=== PATIENT | male | born 2000 | race Caucasian/White ===

== ENCOUNTER 2024-02-19 16:07 | Emergency (ER) | payer OTHER ==
[~2024-02-19] VITALS: Ht 188 cm; Wt 75.0 kg
[2024-02-19 16:51] LABS: HEMATOCRIT 43.1 % (42.0-52.0); HEMOGLOBIN 14.7 g/dl (13.5-17.5); MEAN CORPUSCULAR HEMOGLOBIN 29.1 pg (27.0-33.0); MEAN CORPUSCULAR HGB CONC 34.1 g/dl (32.0-36.5); MEAN CORPUSCULAR VOLUME 85.2 fl (80.0-96.0); PLATELET COUNT, AUTOMATED 287 10^3/uL (150-450); RED BLOOD COUNT 5.06 10^6/uL (4.30-6.10); WHITE BLOOD COUNT 10.1 10^3/uL (4.0-10.0)
[2024-02-19 17:10] LABS: AMPHETAMINES LEVEL URINE NEGATIVE (NEGATIVE); BARBITURATES URINE NEGATIVE (NEGATIVE); BENZODIAZEPINES URINE NEGATIVE (NEGATIVE); CANNABINOIDS URINE NEGATIVE (NEGATIVE); COCAINE METABOLITE URINE NEGATIVE (NEGATIVE); METHADONE URINE NEGATIVE (NEGATIVE); OPIATES URINE NEGATIVE (NEGATIVE); PHENCYCLIDINE URINE NEGATIVE (NEGATIVE)
[2024-02-19 17:15] LABS: ALBUMIN 4.4 G/DL (3.2-5.2); ALKALINE PHOSPHATASE 153 U/L (46-116); ALT/SGPT 17 U/L (7.0-40); AST/SGOT 12 U/L (<34); BILIRUBIN,DIRECT 0.1 MG/DL (<0.4); BILIRUBIN,TOTAL 0.2 MG/DL (0.3-1.2); BLOOD UREA NITROGEN 16 MG/DL (9-23); CALCIUM LEVEL 8.9 MG/DL (8.5-10.1); CARBON DIOXIDE LEVEL 26 MMOL/L (20-31); CHLORIDE LEVEL 106 MMOL/L (98-107); CREATININE FOR GFR 0.82 MG/DL (0.70-1.30); GLOMERULAR FILTRATION RATE > 60.0 (>60); GLUCOSE, FASTING 77 MG/DL (60-100); POTASSIUM SERUM 3.9 MMOL/L (3.5-5.1); SALICYLATE LEVEL < 3.0 MG/DL (<30); SODIUM LEVEL 141 MMOL/L (136-145); TOTAL PROTEIN 7.5 G/DL (5.7-8.2)
[2024-02-19 22:47] VITALS: BP 116/59; TEMP 97.8; O2SAT 99
== END 2024-02-19 22:51 | disposition home or self-care (01) ==
LOC: M ED 16:07
DX: F10.129 Alcohol abuse with intoxication, unspecified (principal); F43.0 Acute stress reaction; S60.221A Contusion of right hand, initial encounter; W22.09XA Striking against other stationary object, initial encounter; Z91.013 Allergy to seafood; Y92.9 Unspecified place or not applicable; Y93.9 Activity, unspecified; Y99.1 Military activity

== ENCOUNTER 2024-06-03 11:37 | Emergency (ER) | payer OTHER ==
[~2024-06-03] VITALS: Ht 185.4 cm; Wt 79.9 kg
[2024-06-03] MEDS ORDERED: ZOLO100T PO (11:43)
[2024-06-03 12:35] LABS: BASO # 0.1 10^3/uL (0.0-0.2); BASO % 0.9 % (0.0-1.0); EOS # 0.2 10^3/uL (0.0-0.5); EOS % 3.4 % (0.0-3.0); HEMATOCRIT 45.3 % (42.0-52.0); HEMOGLOBIN 15.1 g/dl (13.5-17.5); LYMPH # 1.4 10^3/uL (1.5-5.0); LYMPH % 23.6 % (24.0-44.0); MEAN CORPUSCULAR HEMOGLOBIN 28.6 pg (27.0-33.0); MEAN CORPUSCULAR HGB CONC 33.3 g/dl (32.0-36.5); MEAN CORPUSCULAR VOLUME 85.8 fl (80.0-96.0); MONO # 0.4 10^3/uL (0.0-0.8); MONO % 6.3 % (2.0-8.0); NEUTROPHILS # 3.9 10^3/uL (1.5-8.5); NEUTROPHILS % 65.6 % (36.0-66.0); PLATELET COUNT, AUTOMATED 225 10^3/uL (150-450); RED BLOOD COUNT 5.28 10^6/uL (4.30-6.10); WHITE BLOOD COUNT 5.9 10^3/uL (4.0-10.0)
[2024-06-03 13:05] LABS: ALBUMIN 4.4 G/DL (3.2-5.2); BILIRUBIN,DIRECT 0.1 MG/DL (<0.4); BILIRUBIN,TOTAL 0.4 MG/DL (0.3-1.2); TOTAL PROTEIN 7.4 G/DL (5.7-8.2)
[2024-06-03] MEDS: NS 1,000 ML IV ONE (13:15)
[2024-06-03] MEDS ORDERED: ONDA-282 PO (14:17)
[2024-06-03 14:25] VITALS: BP 102/57; TEMP 97.4; O2SAT 100
== END 2024-06-03 14:40 | disposition home or self-care (01) ==
LOC: M ED 11:37
DX: B34.9 Viral infection, unspecified (principal); R11.2 Nausea with vomiting, unspecified; R19.7 Diarrhea, unspecified; Z11.52 Encounter for screening for COVID-19; F32.A Depression, unspecified

== ENCOUNTER 2024-09-09 11:54 | Emergency (ER) | payer OTHER ==
[~2024-09-09] VITALS: Ht 182.9 cm; Wt 79.4 kg
[~2024-09-09 11:54] MED LIST: ONDA-282 PO; ZOLO100T PO
[2024-09-09 12:01] VITALS: BP 115/65; TEMP 97.8; O2SAT 97
[2024-09-09 13:39] LABS: BASO # 0.1 10^3/uL (0.0-0.2); BASO % 0.6 % (0.0-1.0); EOS # 0.2 10^3/uL (0.0-0.5); EOS % 2.4 % (0.0-3.0); HEMATOCRIT 46.6 % (42.0-52.0); HEMOGLOBIN 15.8 g/dl (13.5-17.5); LYMPH # 1.6 10^3/uL (1.5-5.0); LYMPH % 17.4 % (24.0-44.0); MEAN CORPUSCULAR HEMOGLOBIN 29.2 pg (27.0-33.0); MEAN CORPUSCULAR HGB CONC 33.9 g/dl (32.0-36.5); MONO # 0.5 10^3/uL (0.0-0.8); NEUTROPHILS # 6.9 10^3/uL (1.5-8.5); NEUTROPHILS % 74.2 % (36.0-66.0); PLATELET COUNT, AUTOMATED 272 10^3/uL (150-450); RED BLOOD COUNT 5.42 10^6/uL (4.30-6.10); WHITE BLOOD COUNT 9.3 10^3/uL (4.0-10.0)
[2024-09-09 14:02] LABS: LIPASE 37 U/L (12-53)
[2024-09-09 14:04] LABS: ALBUMIN 4.3 G/DL (3.2-5.2); ALKALINE PHOSPHATASE 147 U/L (40-129); ALT/SGPT 21 U/L (7.0-40); AST/SGOT 11 U/L (<34); BILIRUBIN,DIRECT 0.1 MG/DL (<0.4); BILIRUBIN,TOTAL 0.3 MG/DL (0.3-1.2); BLOOD UREA NITROGEN 18 MG/DL (9-23); CALCIUM LEVEL 9.6 MG/DL (8.5-10.1); CARBON DIOXIDE LEVEL 28 MMOL/L (20-31); CHLORIDE LEVEL 106 MMOL/L (98-107); CREATININE FOR GFR 0.95 MG/DL (0.70-1.30); GLOMERULAR FILTRATION RATE > 60.0 (>60); GLUCOSE, FASTING 85 MG/DL (60-100); POTASSIUM SERUM 4.5 MMOL/L (3.5-5.1); SODIUM LEVEL 140 MMOL/L (136-145); TOTAL PROTEIN 7.9 G/DL (5.7-8.2)
[2024-09-09] MEDS ORDERED: GASTROGRAFIN SOLUTION 30ML PO SCH (15:30)
== END 2024-09-09 15:00 | disposition left against medical advice (07) ==
LOC: M ED 11:54
DX: R10.31 Right lower quadrant pain (principal); Z53.9 Procedure and treatment not carried out, unspecified reason; F32.A Depression, unspecified; F17.290 Nicotine dependence, other tobacco product, uncomplicated; Z79.899 Other long term (current) drug therapy; Z91.013 Allergy to seafood

== ENCOUNTER 2024-09-09 17:41 | Emergency (ER) | payer OTHER ==
[~2024-09-09] VITALS: Ht 182.9 cm; Wt 80.0 kg
[2024-09-09 17:45] VITALS: BP 114/60; TEMP 97.4; O2SAT 98
== END 2024-09-09 19:00 | disposition home or self-care (01) ==
LOC: M ED 17:41
DX: F43.0 Acute stress reaction (principal); F32.A Depression, unspecified; Z91.013 Allergy to seafood; Z79.83 Long term (current) use of bisphosphonates; Z79.899 Other long term (current) drug therapy

== ENCOUNTER 2025-01-16 23:15 | Emergency (ER) | payer OTHER ==
[~2025-01-16] VITALS: Ht 182.9 cm; Wt 75.0 kg
[2025-01-16 23:43] LABS: HEMATOCRIT 46.5 % (42.0-52.0); HEMOGLOBIN 15.9 g/dl (13.5-17.5); MEAN CORPUSCULAR HEMOGLOBIN 28.9 pg (27.0-33.0); MEAN CORPUSCULAR HGB CONC 34.2 g/dl (32.0-36.5); MEAN CORPUSCULAR VOLUME 84.4 fl (80.0-96.0); PLATELET COUNT, AUTOMATED 289 10^3/uL (150-450); RED BLOOD COUNT 5.51 10^6/uL (4.30-6.10); WHITE BLOOD COUNT 8.4 10^3/uL (4.0-10.0)
[2025-01-16] MEDS ORDERED: HOME MED LIST COMPLETE! XX SCH (23:55)
[2025-01-16 23:58] LABS: AMPHETAMINES LEVEL URINE NEGATIVE (NEGATIVE)
[2025-01-16 23:59] LABS: BARBITURATES URINE NEGATIVE (NEGATIVE); BENZODIAZEPINES URINE NEGATIVE (NEGATIVE); CANNABINOIDS URINE NEGATIVE (NEGATIVE); COCAINE METABOLITE URINE NEGATIVE (NEGATIVE); METHADONE URINE NEGATIVE (NEGATIVE); OPIATES URINE NEGATIVE (NEGATIVE); PHENCYCLIDINE URINE NEGATIVE (NEGATIVE)
[2025-01-17 00:14] LABS: ETHYL ALCOHOL (ETHANOL) < 0.003 % (0.000-0.010)
[2025-01-17 00:16] LABS: ALBUMIN 4.7 G/DL (3.2-5.2); ALKALINE PHOSPHATASE 129 U/L (40-129); ALT/SGPT 28 U/L (7.0-40); AST/SGOT 24 U/L (<34); BILIRUBIN,DIRECT 0.2 MG/DL (<0.4); BILIRUBIN,TOTAL 0.7 MG/DL (0.3-1.2); BLOOD UREA NITROGEN 15 MG/DL (9-23); CALCIUM LEVEL 9.8 MG/DL (8.5-10.1); CARBON DIOXIDE LEVEL 26 MMOL/L (20-31); CHLORIDE LEVEL 104 MMOL/L (98-107); CREATININE FOR GFR 0.87 MG/DL (0.70-1.30); GLOMERULAR FILTRATION RATE > 60.0 (>60); GLUCOSE, FASTING 96 MG/DL (60-100); POTASSIUM SERUM 4.1 MMOL/L (3.5-5.1); SALICYLATE LEVEL < 3.0 MG/DL (<30); SODIUM LEVEL 141 MMOL/L (136-145); TOTAL PROTEIN 8.4 G/DL (5.7-8.2)
[2025-01-17 00:18] LABS: THYROID STIMULATING HORMONE 5.125 uIU/ML (0.55-4.78)
[2025-01-17 03:11] VITALS: BP 130/70; TEMP 98; O2SAT 99
== END 2025-01-17 03:16 | disposition home or self-care (01) ==
LOC: M ED 23:15
DX: F43.0 Acute stress reaction (principal); F17.290 Nicotine dependence, other tobacco product, uncomplicated; Z91.013 Allergy to seafood